=== PATIENT | male | born 1995 | race Caucasian/White ===

== ENCOUNTER 2017-05-22 11:59 | Emergency (ER) | payer OTHER ==
[2017-05-22 12:32] LABS: % IMMATURE GRANULYOCYTES 0.4 % (0.0-1.1); ABSOLUTE IMMATURE GRANULOCYTES 0.04 10^3/uL (0.00-0.10); ADD DIFF? NO; ADD MORPH? NO; ADD SCAN? NO; ATYPICAL LYMPHOCYTE FLAG 0 (0-99); FRAGMENT RBC FLAG 0 (0-99); HEMATOCRIT 50.9 % (40.0-51.0); HEMOGLOBIN 17.6 g/dL (13.7-17.5); LEFT SHIFT FLG 0 (0-99); LIPEMIA HEMOLYSIS FLAG 90 (0-99); MEAN CELL HEMOGLOBIN 28.7 pg (27.9-34.1); MEAN CELL HEMOGLOBIN CONCENTR. 34.6 g/dL (32.4-36.7); MEAN PLATELET VOLUME 11.5 fL (8.7-11.7); PLATELET CLUMPS FLAG 0 (0-99); PLATELET COUNT 250 10^3/uL (150-400); RED BLOOD CELL COUNT 6.13 10^6/uL (4.40-6.38); RED CELL DISTRIBUTION WIDTH 12.3 % (11.5-15.2)
--- NOTE | 2017-05-22 12:32 | EDPHY ---
H & P Stated Complaint: r abd pain n/v Time Seen by Provider: 05/22/17 12:22 HPI/ROS: CHIEF COMPLAINT: "I think I have a gallbladder attack" HISTORY OF PRESENT ILLNESS: 22-year-old male arrives via private vehicle with his mother complaining of possible biliary colic. They describe right upper and right lower quadrant pain which has occurred previously, intermittently, describes a colicky type of pain. Was seen recently by the nurse practitioner who recommend he get an ultrasound. This morning he had similar pain, contact his nurse practitioner recommend he come to the ER for evaluation. Positive nausea. No vomiting. No diarrhea. No back or flank pain. No urinary abnormality. No hematuria no dysuria. This does not appear to be related to dietary intake. REVIEW OF SYSTEMS: A ten point review of systems was performed and is negative with the exception of the items mentioned in the HPI PAST MEDICAL & SURGICAL HISTORY: No pertinent medical or surgical history SOCIAL HISTORY: Nonsmoker PHYSICAL EXAM (Prior to examination, patient consented to physical exam, hands were washed and my usual and customary physical exam procedures followed) 1) GENERAL: Well-developed, well-nourished, alert and oriented. Appears to be in no acute distress. 2) HEAD: Normocephalic, atraumatic 3) HEENT: Sclera anicteric. 4) NECK: Full range of motion, no meningeal signs. 5) LUNGS: Clear auscultation bilaterally, no wheezes, no rhonchi, no retractions. 6) HEART: Regular rate and rhythm, no murmur, no heave, no gallop. 7) ABDOMEN: Tender to palpation right upper quadrant with positive Richardson's, tender to palpation right lower quadrant positive McBurney's. No peritoneal sign. No distension., 8) MUSCULOSKELETAL: Moving all extremities, no focal areas of tenderness, no obvious trauma. No peripheral edema or discoloration. 9) BACK: No CVA tenderness. 10) SKIN: No rash, no petechiae. 11) Psychiatric: Patient is oriented X 3, there is no agitation. DIFFERENTIAL DIAGNOSIS: in no particular include but limited to biliary colic , cholecystitis, acute appendicitis, pyelonephritis, nephrolithiasis - Personal History Current Tetanus/Diphtheria Vaccine: No - Medical/Surgical History Hx Asthma: No Hx Chronic Respiratory Disease: No Hx Diabetes: No Hx Cardiac Disease: No Hx Renal Disease: No Hx Cirrhosis: No Hx Alcoholism: No Hx HIV/AIDS: No Hx Splenectomy or Spleen Trauma: No Other PMH: denies - Social History Smoking Status: Never smoked Constitutional: Initial Vital Signs Temperature (C) 36.4 C 05/22/17 12:03 Heart Rate 51 L 05/22/17 12:03 Respiratory Rate 17 05/22/17 12:03 Blood Pressure 121/85 H 05/22/17 12:03 O2 Sat (%) 97 05/22/17 12:03 O2 Delivery Mode Room Air Allergies/Adverse Reactions: No Known Allergies Allergy (Verified 05/22/17 12:02) Home Medications: Medication Instructions Recorded Dextroamphetamine/Amphetamine 20 mg PO DAILY 12/29/11 [Adderall Xr 15 mg Capsule] Medical Decision Making - Diagnostics Imaging Results: Imaging Impressions Abdomen/Pelvis CT 05/22/17 13:42 Impression: 1. Suspect chronic right UPJ obstruction with dilated renal pelvis, calyces, renal enlargement, cortical thinning, and perinephric stranding. 2. No nephrolithiasis or ureterolithiasis. 3. No left urinary tract obstruction. 4. Appendicolith without appendicitis. Attention: This CT examination is specifically designed to evaluate patients who are clinically suspected of having acute obstructive uropathy. This examination does not use radiographic contrast, and as such, provides only a limited evaluation of the abdomen, pelvis and retroperitoneum. If there is further clinical suspicion for pathological conditions other than obstructive uropathy, a complete CT evaluation of the abdomen and pelvis utilizing intravenous, oral, and rectal contrast should be considered. Findings and recommendations discussed with Emergency Department physician, Phong Meade PA-C, at 1440 hours on May 22, 2017. Final report concurs with initial preliminary interpretation. Images reviewed myself Imaging: Discussed imaging studies w/ inspector elevators Radiologist ED Course/Re-evaluation: 2:59 p.m.: Re-evaluation. Discussed his imaging results. Re-evaluated the patient. No CVA tenderness. No right upper quadrant tenderness. No right lower quadrant tenderness at McBurney's point. He has no evidence of appendicitis on imaging. No evidence of cholecystitis. Discussed case with secondary supervising physician Dr. Lim in the ER. Patient is comfortable , pain relieved pain-free at this time. As his pain is currently controlled I think he can be discharged. However, I did recommend follow up with Urology for evaluation of hydronephrosis. He has no evidence of urinary infection at this time. In addition given his symptoms he has been informed that hepatobiliary dysfunction is not ruled out I have also recommend follow up with Gastroenterology. In the meantime should she develop new or worsening symptoms to return to the ER immediately. He feels comfortable being discharged. - Data Points Laboratory Results: Laboratory Results 05/22/17 12:15 05/22/17 12:15 05/22/17 05/22/17 05/22/17 14:43 12:15 12:15 WBC 10.70 10^3/uL H 10^3/uL (3.80-9.50) RBC 6.13 10^6/uL 10^6/uL (4.40-6.38) Hgb 17.6 g/dL H g/dL (13.7-17.5) Hct 50.9 % % (40.0-51.0) MCV 83.0 fL fL (81.5-99.8) MCH 28.7 pg pg (27.9-34.1) MCHC 34.6 g/dL g/dL (32.4-36.7) RDW 12.3 % % (11.5-15.2) Plt Count 250 10^3/uL 10^3/uL (150-400) MPV 11.5 fL fL (8.7-11.7) Neut % (Auto) 82.6 % H % (39.3-74.2) Lymph % (Auto) 11.1 % L % (15.0-45.0) [place] % (Auto) 5.1 % % (4.5-13.0) Eos % (Auto) 0.2 % L % (0.6-7.6) Baso % (Auto) 0.6 % % (0.3-1.7) Nucleat RBC Rel Count 0.0 % % (0.0-0.2) Absolute Neuts (auto) 8.84 10^3/uL H 10^3/uL (1.70-6.50) Absolute Lymphs (auto) 1.19 10^3/uL 10^3/uL (1.00-3.00) Absolute Monos (auto) 0.55 10^3/uL 10^3/uL (0.30-0.80) Absolute Eos (auto) 0.02 10^3/uL L 10^3/uL (0.03-0.40) Absolute Basos (auto) 0.06 10^3/uL 10^3/uL (0.02-0.10) Absolute Nucleated RBC 0.00 10^3/uL 10^3/uL (0-0.01) Immature Gran % 0.4 % % (0.0-1.1) Immature Gran # 0.04 10^3/uL 10^3/uL (0.00-0.10) Sodium 142 mEq/L mEq/L (134-144) Potassium 4.8 mEq/L mEq/L (3.5-5.2) Chloride 104 mEq/L mEq/L (97-110) Carbon Dioxide 21 mEq/l L mEq/l (22-31) Anion Gap 17 mEq/L H mEq/L (8-16) BUN 21 mg/dL mg/dL (7-23) Creatinine 1.3 mg/dL mg/dL (0.7-1.3) Estimated GFR > 60 Glucose 87 mg/dL mg/dL (70-100) Calcium 10.7 mg/dL H mg/dL (8.5-10.4) Phosphorus 3.2 mg/dL mg/dL (2.5-4.5) Total Bilirubin 1.4 mg/dL mg/dL (0.1-1.4) Conjugated Bilirubin 0.4 mg/dL mg/dL (0.0-0.5) Unconjugated Bilirubin 1.0 mg/dL mg/dL (0.0-1.1) AST 28 IU/L IU/L (17-59) ALT 32 IU/L IU/L (21-72) Alkaline Phosphatase 68 IU/L IU/L (38-126) Total Protein 8.8 g/dL H g/dL (6.3-8.2) Albumin 5.5 g/dL H g/dL (3.5-5.0) Lipase 50 IU/L IU/L (23-300) Urine Color YELLOW Urine Appearance HAZY Urine pH 5.0 (5.0-7.5) Ur Specific [place] 1.023 (1.002-1.030) Urine Protein NEGATIVE (NEGATIVE) Urine Ketones 1+ H (NEGATIVE) Urine Blood 1+ H (NEGATIVE) Urine Nitrate NEGATIVE (NEGATIVE) Urine Bilirubin NEGATIVE (NEGATIVE) Urine Urobilinogen NEGATIVE EU EU (0.2-1.0) Ur Leukocyte Esterase NEGATIVE (NEGATIVE) Urine RBC 1-3 /hpf /hpf (0-3) Urine WBC 1-3 /hpf /hpf (0-3) Ur Epithelial Cells TRACE /lpf /lpf (NONE-1+) Urine Mucus TRACE /lpf /lpf (NONE-1+) Urine Glucose NEGATIVE (NEGATIVE) Medications Given: Discontinued Medications Hydromorphone HCl (Dilaudid) 1 mg IVP EDNOW ONE Stop: 05/22/17 13:58 Last Admin: 05/22/17 14:06 Dose: 1 mg Ketorolac Tromethamine (Toradol) 30 mg IVP EDNOW ONE Stop: 05/22/17 13:16 Last Admin: 05/22/17 13:19 Dose: 30 mg Ondansetron HCl (Zofran) 4 mg IVP EDNOW ONE Stop: 05/22/17 13:58 Last Admin: 05/22/17 14:06 Dose: 4 mg Departure - Departure Disposition: Home, Routine, Self-Care Clinical Impression: Hydronephrosis Qualifiers: Hydronephrosis type: with ureteropelvic junction obstruction Qualified Code(s) : 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 Pop Lilly is a urologist) Augie Samson MD [Medical Doctor] - 2-3 days, call for appt. (Dr. Samson is a tongsman)
[2017-05-22 12:48] LABS: ALANINE AMINOTRANSFERASE 32 IU/L (21-72); ALBUMIN 5.5 g/dL (3.5-5.0); ALKALINE PHOSPHATASE 68 IU/L (38-126); ANION GAP 17 mEq/L (8-16); ASPARTATE AMINOTRANSFERASE 28 IU/L (17-59); BILIRUBIN,TOTAL 1.4 mg/dL (0.1-1.4); BILIRUBIN-CONJUGATED 0.4 mg/dL (0.0-0.5); CALCIUM 10.7 mg/dL (8.5-10.4); CARBON DIOXIDE 21 mEq/l (22-31); CHLORIDE 104 mEq/L (97-110); CREATININE 1.3 mg/dL (0.7-1.3); GLOMERULAR FILTRATION RATE > 60; GLUCOSE 87 mg/dL (70-100); POTASSIUM 4.8 mEq/L (3.5-5.2); SODIUM 142 mEq/L (134-144); TOTAL PROTEIN 8.8 g/dL (6.3-8.2)
[2017-05-22] MEDS ORDERED: KETOROLAC 30 MG/1 ML SDV IVP ONE (13:15)
[2017-05-22] MEDS ORDERED: HYDROmorphONE/DILAUDID 1 MG/ML SYR IVP ONE (13:57)
[2017-05-22] MEDS ORDERED: ONDANSETRON 4 MG/2 ML VIAL IVP ONE (13:57)
[2017-05-22 14:10] VITALS: RESP 16
[2017-05-22 14:54] LABS: COLOR YELLOW; LEUKOCYTE ESTERASE,URINE NEGATIVE (NEGATIVE); NITRITE,URINE NEGATIVE (NEGATIVE)
[2017-05-22 14:57] LABS: MUCUS TRACE /lpf (NONE-1+)
[2017-05-22 15:50] VITALS: BP 122/70; PULSE 60; TEMP 97.9; O2SAT 97
== END 2017-05-22 15:49 | disposition home or self-care (01) ==
DX: Q62.0 Congenital hydronephrosis (principal)
CPT/HCPCS: 96374; J1170; J1885; J2405

== ENCOUNTER → 2018-03-31 | Outpatient (CLI) | payer OTHER ==
[~2018-03-31] MED LIST: GADOBUTROL 10 ML VIAL IVP ONE
== END ==
LOC: FIMAGING 13:46
PROVIDERS: ATTEND Internal Medicine
DX: R10.9 Unspecified abdominal pain (principal); R11.0 Nausea; Z87.448 Personal history of other diseases of urinary system
CPT/HCPCS: A9585